=== PATIENT | male | born 1990 | race Caucasian/White ===

== ENCOUNTER 2022-04-19 19:26 | Emergency (ER) | payer OTHER, SELFPAY ==
[2022-04-19] VITALS (8 sets, daily range): BP systolic 153–197; BP diastolic 93–119; PULSE 76–108; RESP 16–18; TEMP 36.6; O2SAT 94–99
--- NOTE | ~2022-04-19 | XR_ITS ---
EXAMINATION: XR chest 2V Exam Date/Time: 04/19/2022 20:02 CDT HISTORY: LT SIDED CHEST PAIN RADIATING TO LT ARM AND NECK X1DAY Comparison: None available. RESULT: Lines, tubes, and devices: None. Lungs and pleura: Low volumes with crowding. Cardiomediastinal silhouette: Stable. Other: No acute osseous or upper abdominal finding. IMPRESSION: No acute cardiopulmonary process. Reviewed, dictated and finalized at location K.
--- NOTE | 2022-04-19 19:29 | ECG_ITS ---
Measurements Intervals [place] Rate: 96 P: 17 WV: 170 QRS: 9 QRSD: 96 T: 12 QT: 327 QTc: 415 Interpretive Statements SINUS RHYTHM NO PREVIOUS ECG AVAILABLE FOR COMPARISON Electronically Signed On 04-19-2022 20:00:43 CDT by Cheyenne Herbert M.D.
[2022-04-19 19:48] LABS: Basophils Percent Auto 0.3 % (0.2-1.2); Eosinophils Absolute Auto 0.1 K/mm3 (0-0.3); Eosinophils Percent Auto 1.2 % (0-4.4); Hematocrit 47.7 % (42.0-52.0); Hemoglobin 16.4 g/dL (14.0-18.0); Immature Granulocyte Absolute 0.01 K/mm3 (0.00-0.031); Immature Granulocyte Percent A 0.1 % (0-0.5); Lymphocytes Absolute Auto 2.67 K/mm3 (0.9-3.2); Lymphocytes Percent Auto 35.5 % (18.3-44.2); Mean Corpuscular HGB Conc 34.4 g/dl (32-36); Mean Corpuscular Hemoglobin 27.2 pg (26-34); Mean Corpuscular Volume 79.2 fl (80-100); Mean Platelet Volume 9.8 fl (7.4-10.4); Monocytes Absolute Auto 0.7 K/mm3 (0.1-0.6); Monocytes Percent Auto 9.3 % (2.6-8.5); Neutrophils Percent Auto 53.6 % (45.5-73.1); Platelet Count Result 237 k/mm3 (150-375); Red Blood Count 6.02 M/mm3 (4.6-6.20); Red Cell Distribution Width 13.3 % (11.5-14.5); White Blood Count 7.5 K/mm3 (4.5-10.0)
[2022-04-19 20:07] LABS: Prothrombin Time 12.5 Seconds (11.1-14.7)
[2022-04-19 20:08] LABS: Partial Thromboplastin Time 31.7 SECONDS (22.3-36.8)
[2022-04-19 20:13] LABS: Alanine Aminotransferase 73 U/L (6-50); Albumin Level 4.7 g/dL (3.5-5.1); Alkaline Phosphatase 104 U/L (38-126); Anion Gap 7 mmol/L (8-16); Aspartate Amino Transferase 48 U/L (17-59); Blood Urea Nitrogen 14 mg/dL (9-20); Calcium 9.1 mg/dL (8.4-10.2); Carbon Dioxide 28 mmol/L (22-30); Chloride 103 mmol/L (98-107); Estimated CRCL calculation 145 ml/min; Estimated Glomerular Filt Rate > 60; Glucose 80 mg/dL (65-110); Lipase 159 U/L (23-300); Potassium 4.1 mmol/L (3.4-5.0); Sodium 138 mmol/L (137-145)
[2022-04-19 20:23] LABS: Troponin I < 0.012 ng/mL (0.000-0.034)
--- NOTE | 2022-04-19 20:28 | ED.CHESTPAIN ---
HPI - Chest Pain General Chief Complaint: Chest Pain Stated Complaint: chest pain Time Seen by Provider: 04/19/22 20:04 History of Present Illness HPI narrative: 31-year-old male no medical history presents the emergency room with sudden onset of unprovoked left anterior chest pain. Patient states this morning he began experiencing chest pain that radiated into his left arm and neck while at rest. Patient states pain lasted about 30 minutes and did not have any associated symptoms. Patient describes the pain as a pressure-like sensation and is unable to reproduce the pain. Patient denies any recent URI symptoms. Denies drug or alcohol abuse. Does not smoke. Related Data Allergies Allergy/AdvReac Type Severity Reaction Status Date / Time No Known Allergies Allergy Unverified 04/19/22 20:18 Review of Systems Review of Systems: CONSTITUTIONAL: Denies fever, chills, or sweats. EYES: Denies visual changes, redness, or discharge. ENT: Denies rhinorrhea, congestion, sore throat, or otalgia. CARDIOVASCULAR: Reports chest pain, denies palpitations RESPIRATORY: Denies cough or dyspnea. GASTROINTESTINAL: Denies abdominal pain, nausea, vomiting, or diarrhea. GENITOURINARY: Denies dysuria or hematuria. SKIN: Denies rash or itching. MUSCULOSKELETAL: Denies back pain, joint pain, or myalgia. NEUROLOGIC: Denies headache, numbness, dizziness, or weakness. PSYCHIATRIC: Denies anxiety or depression. Exam Narrative: GENERAL: Well-appearing, well-nourished, no physical limitations, and in no acute distress. HEAD: Normocephalic, atraumatic. EYES: Conjunctivae normal, PERRLA and EOMI. CHEST: Clear to auscultation. No respiratory distress. No wheezes rales or rhonchi. No tenderness. HEART: Regular rate and rhythm. No murmur heard. Normal peripheral pulses. EXTREMITIES: Normal range of motion. No edema. No clubbing or cyanosis SKIN: Warm, dry, no rash. No noted wounds NEURO: No focal deficits. Alert and oriented x3. MAEW. CN's II-XI intact bilaterally, normal gait PSYCH: Cooperative. Normal mood and affect. Course Vital Signs Vital signs: Vital Signs Temperature 36.6 C 04/19/22 19:52 Pulse Rate 108 H 04/19/22 19:52 Respiratory Rate 16 04/19/22 19:52 Blood Pressure 153/93 H 04/19/22 19:52 Pulse Oximetry 99 04/19/22 19:52 Oxygen Delivery Room Air 04/19/22 19:52 Temperature 36.6 C 04/19/22 19:52 Pulse Rate 76 04/19/22 20:17 Respiratory Rate 18 04/19/22 20:17 Blood Pressure 195/98 H 04/19/22 20:17 Pulse Oximetry 98 04/19/22 20:45 Oxygen Delivery Room Air 04/19/22 20:15 MDM - Chest Pain Lab Data Result diagrams: 04/19/22 19:38 04/19/22 19:38 Labs: Lab Results 04/19/22 04/19/22 04/19/22 Range/Units 19:38 19:38 19:38 WBC 7.5 (4.5-10.0) K/mm3 RBC 6.02 (4.6-6.20) M/mm3 Hgb 16.4 (14.0-18.0) g/dL Hct 47.7 (42.0-52.0) % MCV 79.2 L (80-100) fl MCH 27.2 (26-34) pg MCHC 34.4 (32-36) g/dl RDW 13.3 (11.5-14.5) % Plt Count 237 (150-375) k/mm3 MPV 9.8 (7.4-10.4) fl Immature Gran % (Auto) 0.1 (0-0.5) % Neut % (Auto) 53.6 (45.5-73.1) % Lymph % (Auto) 35.5 (18.3-44.2) % [place] % (Auto) 9.3 H (2.6-8.5) % Eos % (Auto) 1.2 (0-4.4) % Baso % (Auto) 0.3 (0.2-1.2) % Lymph # (Auto) 2.67 (0.9-3.2) K/mm3 [place] # (Auto) 0.7 H (0.1-0.6) K/mm3 Eos # (Auto) 0.1 (0-0.3) K/mm3 Baso # (Auto) 0.0 (0.0-0.1) K/mm3 Abs Immat Gran (auto) 0.01 (0.00-0.031) K/mm3 Absolute Neuts (auto) 4.0 (1.3-6.7) K/mm3 Absolute Nucleated RBC 0.0 (0.0-0.012) K/mm3 Nucleated RBC % 0.0 (0.0-0.2) % PT 12.5 (11.1-14.7) Seconds INR 1.0 APTT 31.7 (22.3-36.8) SECONDS D-Dimer (<0.48) ug/mL Sodium 138 (137-145) mmol/L Potassium 4.1 (3.4-5.0) mmol/L Chloride 103 (98-107) mmol/L Carbon Dioxide 28 (22-30) mmol/L Anion Gap 7 L (8-16) mmol/L BUN 14 (9-2
[2022-04-19 20:43] LABS: D Dimer 0.31 ug/mL (<0.48)
== END 2022-04-19 21:23 | disposition home or self-care (01) ==
PROVIDERS: Emergency Medicine; Emergency Provider Nurse Practitioner Family; PCP Internal Medicine
DX: R07.89 Other chest pain (principal)
CPT/HCPCS: 36415; 71046; 80053; 83690; 84484; 85025; 85380; 85610; 85730; 93005; 99284

== ENCOUNTER 2022-05-25 09:07 | Emergency (ER) | payer OTHER, SELFPAY ==
[2022-05-25 09:16] VITALS: BP 148/105; PULSE 93; RESP 16; TEMP 36.7; O2SAT 99
[2022-05-25 09:17] VITALS: BP 148/105; PULSE 93; RESP 16; TEMP 36.7; O2SAT 99
--- NOTE | 2022-05-25 09:32 | ED.EYEPROB ---
HPI - Eye Problem General Chief complaint: Eye Problems Stated complaint: stye on lt eye Time Seen by Provider: 05/25/22 09:32 Source: patient, RN notes reviewed and old records reviewed Mode of arrival: ambulatory Limitations: no limitations History of Present Illness HPI Narrative: 31-year-old male who presents to [facility] who has external stye noted to left lower medial eyelid. Patient states stye has been there for 3 week duration. He reports using warm compresses his left eye, OTC eyedrops and ointment without resolution of his symptoms. Patient denies any change in vision no redness to sclera noted nor injection of conjunctiva. MD chief complaint: other (stye to left lower eyelid) Onset (ago): week(s) (3) Eye Symptoms: other (stye to left lower eyelid) Severity scale (1-10): 5 If Pain, Quality: other (pressure,soreness) Treatments Prior to Arrival: OTC eye drops and other (warm compresses and OTC ointment) Related Data Allergies Allergy/AdvReac Type Severity Reaction Status Date / Time No Known Allergies Allergy Verified 05/25/22 09:16 Review of Systems Review of Systems: CONSTITUTIONAL: Denies fever, chills, or sweats. EYES: Denies visual changes. Reports redness, irritation,swelling to left medial lower eyelid; appears as if stye. ENT: Denies rhinorrhea, congestion, sore throat, or otalgia. CARDIOVASCULAR: Denies chest pain, palpitations, or edema. RESPIRATORY: Denies cough or dyspnea. SKIN: Denies rash or itching. NEUROLOGIC: Denies headache All systems reviewed & are unremarkable except as noted in HPI and below PMFSH Past Medical History Medical History (Updated 05/29/22 @ 13:38 by Briana Pena NP) Elevated blood pressure reading External hordeolum Social History Social History (Updated 05/29/22 @ 13:33 by Briana Pena NP) Smoking status: Never smoker Alcohol intake: current Alcohol use details: social Substance use type: does not use Living arrangements: with family Gender identity (if verbalized by the patient): Male Comments At time of signature, agree with nursing past medical, surgical, social and family history. There is no relevant family history pertinent to the presenting complaint Exam Narrative: GENERAL: Well-appearing, well-nourished, and in no acute distress. HEAD: Normocephalic, atraumatic. EYES: PERRLA and EOMI. Upper eyelids unremarkable left lower left eyelid has noted swelling ,red with raised lesion to medial aspect of left lower eyelid No periorbital cellulitis noted. Sclera and conjunctivae clear ENT: Nares clear, no rhinorrhea or epistaxis. Mucous membranes moist. NECK: Supple. no lymphadenopathy CHEST: Clear to auscultation. No respiratory distress. HEART: Regular rate and rhythm. No murmur heard. Normal peripheral pulses. SKIN: Warm, dry, no rash. NEURO: No focal deficits. Alert and oriented x3. Course Course Emergency Course: Patient is aware of diagnosis, understands and agrees to treatment plan. Anticipatory guidance given. Patient agrees to follow-up as directed and is aware of reasons to seek care at the emergency department. Portions of this record may have been created with voice recognition software Level of Care: Express Care Visit Vital Signs Vital signs: Vital Signs Temperature 36.7 C 05/25/22 09:16 Pulse Rate 93 05/25/22 09:16 Respiratory Rate 16 05/25/22 09:16 Blood Pressure 148/105 H 05/25/22 09:16 Pulse Oximetry 99 05/25/22 09:16 Temperature 36.7 C 05/25/22 09:17 Pulse Rate 93 05/25/22 09:17 Respiratory Rate 16 05/25/22 09:17 Blood Pressure 148/105 H 05/25/22 09:17 Pulse Oximetry 99 05/25/22 09:17 Reviewed MDM - Eye Problem MDM Narrative Medical decision making narrative: Consideration of the following conditions may be warranted for the presenting problem, they are not final diagnoses: Bacterial conjunctivitis, allergic conjunctivitis, viral conjunctivitis, foreign body, blephar
== END 2022-05-25 09:55 | disposition home or self-care (01) ==
PROVIDERS: Emergency Provider Registered Nurse; PCP Internal Medicine
DX: H00.015 Hordeolum externum left lower eyelid (principal)
CPT/HCPCS: 99213; G0463

== ENCOUNTER 2022-11-07 07:55 | Outpatient (CLI) | payer OTHER, SELFPAY ==
--- NOTE | ~2022-11-07 | US_ITS ---
Limited Abdominal Sonogram: Real-time sonographic imaging of the right upper quadrant was performed. Clinical History: Abnormal serum enzymes Findings: The liver appears mildly echogenic, with no evidence of mass lesion or bile duct dilatatio n. Main portal vein demonstrates normal direction of flow. The gallbladder is well distended, and bella ears normal with no evidence of gallstone or wall thickening. The common bile duct measures 5 mm. Th e visualized pancreas, aorta, and IVC are unremarkable. Impression: Probable diffuse fatty infiltration of the liver. Reviewed, dictated and finalized at location M. Impression: Probable diffuse fatty infiltration of the liver.
== END 2022-11-07 07:56 | disposition home or self-care (01) ==
PROVIDERS: PCP Internal Medicine; Visit Provider Internal Medicine
DX: R74.8 Abnormal levels of other serum enzymes (principal)
CPT/HCPCS: 76705

== ENCOUNTER 2023-01-15 01:23 | Day surgery (SDC) | payer OTHER, SELFPAY ==
[2023-01-05 11:21] VITALS: BMI 37.3
--- NOTE | 2023-01-05 11:24 | PC.NURSE ---
Report to the Outpatient Waiting Room, entrance under the green pavilion located off [facility], at time 0900 on date 01/15/23. Planned Procedure Time: 1100. Time changes happen often and if your time is changed the preop area will call you the afternoon before. - You and your visitor will be asked to self-screen and do not enter if you have any COVID symptoms. - A mask is optional within the hospital at this time. Patients may have clear liquids (water, carbonated beverages, clear teas, apple juice) until 3 hours prior to surgery with a maximum of 20 ounces. - No food from midnight until time of surgery Take the following medications with a SIP of water the morning of surgery: SERTRALINE DO NOT STOP ANY OF YOUR OTHER PRESCRIPTION MEDICATIONS PRIOR TO SURGERY ?EXCEPT THE FOLLOWING Medications to discontinue per physician: N/A Date to take last dose: N/A Please no make-up, nail jamaican, hairspray, perfume, deodorant, or body powder the day of surgery. No jewelry (including any body piercings) or valuables the day of surgery, leave them at home. Please take a shower or bath the night before, or the morning of, surgery with an antibacterial soap. Wear comfortable, loose fitting clothing. - Jewelry must be removed prior to entering the operating room. Rings and piercings that are not removed may be cut off. - The hospital will not accept responsibility for valuables. - Please leave all valuables, including medications, at home the day of surgery. If you are going home after surgery, a licensed corrugated fastener driver must drive you home. - NO public transportation without another adult if you receive anesthesia. - We recommend that an adult stay with you for 24 hours following discharge. - We also recommend that you do not drive, make important decision, drink alcoholic beverages, or take any drugs that were not prescribed by your health care provider for at least 24 hours after your discharge time. Follow any additional instructions given to you from your surgeon. If you or anyone in your household have experienced Covid symptoms in the past week, please notify your surgeon or the nurse liaison at the phone number below for possible testing. Telephone instructions given to PT - CHAZ BLISS and asked if any additional questions and then verbalized understanding. Patient advised to call surgeon office or pre surgery nurse liaison [phone] if any additional questions.
--- NOTE | 2023-01-12 16:51 | P.HP_ITS ---
H&P: HPI History of Present Illness Date/Time: 01/12/23 16:51 Chief Complaint: Nasal obstruction nasal congestion septal deviation turbinate hypertrophy Narrative: planned surgical procedure Review of Systems Review of Systems: All systems reviewed & are unremarkable except as noted in HPI and below [facility] Past Medical History Medical History Anxiety Chronic nasal congestion Elevated blood pressure reading External hordeolum Generalized anxiety disorder Hypogonadism in male Family History Family History Grandparent Hyperlipemia, mixed Social History Social History Smoking status: Never smoker Alcohol intake: never Alcohol use details: social Substance use: never Substance use type: does not use Lack of Transportation: No Lack of Food: Never True Current Housing: I Have Housing Concerned About Future Housing: No Difficulty Paying Gas/Electric Bills: No Difficulty Paying for Meds: No Currently Unemployed: No Education: High School Diploma/GED Difficulty w/ Childcare or Family Care: No Living arrangements: with family Gender identity (if verbalized by the patient): Male Spiritual care concerns: No Meds Home Medications and Allergies Home Medications Medication Instructions Recorded Confirmed Type eszopiclone 1 mg tablet (Lunesta) 1 mg PO QHS #20 tabs 10/17/22 01/05/23 Rx sertraline 50 mg tablet 50 mg PO DAILY #30 tabs 12/19/22 01/05/23 Rx Allergies Allergy/AdvReac Type Severity Reaction Status Date / Time No Known Allergies Allergy Verified 01/05/23 11:20 Exam Narrative: septal deviation turbinate hypertrophy Assessment and Plan Assessment and plan (1) Hypertrophy of both inferior nasal turbinates: Code(s): J34.3 - Hypertrophy of nasal turbinates Status: Acute Assessment and Plan: plan or septoplasty turbinate reduction with outfracture, risks were discussed including change in vision blindness CSF leak brain brain damage infection postoperative bleeding need for time off work need for time off school failure to resolve symptoms need for persistent use of medications inherent risks narcotic use.? Damage to any structure but the clavicles by myself damage to any structure the induction and maintenance of anesthesia including vocal cord paralysis.? Septal perforation.? Patient voiced risk of these voiced understanding of these risks and agreed. (2) Nasal septal deviation: Code(s): J34.2 - Deviated nasal septum Status: Acute (3) Nasal obstruction: Code(s): J34.89 - Other specified disorders of nose and nasal sinuses Status: Acute
[2023-01-15] VITALS (11 sets, daily range): BP systolic 106–147; BP diastolic 59–94; PULSE 73–91; RESP 14–22; TEMP 36.3–36.6; O2SAT 92–100
--- NOTE | 2023-01-15 07:17 | WPDHPUPDATE1 ---
History and Physical Update Update Date/Time: 01/15/23 07:17 History and Physical has been reviewed, including an updated exam of the patient. There are NO changes in the patient's condition. Risks, benefits, and alternatives have been discussed and questions answered. Patient agrees to proceed with procedure.
[2023-01-15] MEDS: LACTATED RINGERS 1,000 ML 30 ML IV CONT ×2 (09:30→12:50)
--- NOTE | 2023-01-15 09:56 | P.PNAN_ITS ---
Anes - Initial Pre Proc Eval Procedure: Operation Date: 01/15/23 11:00 Proposed Procedures p Septoplasty, - Ceferino Spangler MD s Bilateral Inferior Turbinectomy with Outfracture - Ceferino Spangler MD Date/Time: 01/15/23 09:56 Surgeon: Ceferino Spangler MD Pre Op Diagnosis: septal deviation, turbinate hypertrophy Patient Data Age: 32 Gender: M Height: 1.98 m Weight: 146.5 kg Allergies Allergy/AdvReac Type Severity Reaction Status Date / Time No Known Allergies Allergy Verified 01/15/23 09:53 Home Medications Medication Instructions Recorded Confirmed Type eszopiclone 1 mg tablet (Lunesta) 1 mg PO QHS #20 tabs 10/17/22 01/15/23 Rx sertraline 50 mg tablet 50 mg PO DAILY #30 tabs 12/19/22 01/15/23 Rx Patient hx anesthesia problems: none Family hx anesthesia problems: none Results Review: All pre-operative results and documents have been reviewed as part of the pre- operative evaluation. [facility] Past Medical History Medical History Anxiety Chronic nasal congestion Elevated blood pressure reading External hordeolum Generalized anxiety disorder Hypogonadism in male Family History Family History Grandparent Hyperlipemia, mixed Social History Social History Smoking status: Never smoker Alcohol intake: never Alcohol use details: social Substance use: never Substance use type: does not use Lack of Transportation: No Lack of Food: Never True Current Housing: I Have Housing Concerned About Future Housing: No Difficulty Paying Gas/Electric Bills: No Difficulty Paying for Meds: No Currently Unemployed: No Education: High School Diploma/GED Difficulty w/ Childcare or Family Care: No Living arrangements: with family Gender identity (if verbalized by the patient): Male Spiritual care concerns: No Anes - Eval Final PreProcedure Day of Procedure 01/15/23 09:56 Patient weight: overweight Heart: regular rate and rhythm Lungs: clear to auscultation Airway: Mallampati scale class II Neurological: alert and oriented Last oral intake: >/= 8 hours ASA classification: II Emergent: no Anesthetic plan: proceed Anesthesia type and monitoring: general ETT and standard monitoring Results Review: All pre-operative results and documents have been reviewed as part of the pre- operative evaluation. Informed Consent: The patient's anesthetic plan and its attendant risks and benefits were discussed with the patient/family/POA. Questions were solicited and answers provided to the satisfaction of the patient/family/POA.
[2023-01-15] MEDS: ACETAMINOPHEN 500 MG TABLET 1000 MG PO (09:58)
[2023-01-15] MEDS: ceFAZolin 3 GM/D5W 100 ML 100 ML IVPB (11:20)
[2023-01-15] MEDS: OXYMETAZOLINE HCL 0.05% NAS 15 ML BTL (*BKC) 1 SPRAY NASAL (12:16)
[2023-01-15] MEDS: MUPIROCIN 2% OINT 22 GM TUBE 1 APPLIC EACH NARE (12:37)
[2023-01-15] MEDS: LIDO 1%/EPINEPHRINE 1:100,000 50 ML VIAL 20 ML INFILTRATE (12:38)
--- NOTE | 2023-01-15 13:06 | P.OP_ITS ---
Procedure Note - Detailed Date of Procedure 01/15/23 Pre-op Diagnosis septal deviation, turbinate hypertrophy Post-op Diagnosis Same Procedure Performed endoscopicassisted septoplasty turbinate reduction with outfracture bilaterally Surgeon Ceferino Spangler MD Anesthesia General Indications see above Findings severely deviated left for septum straight left-sided perforation small no concomitant right-sided perforation turbinates hypertrophied well reduced minima l if any bleeding. Description of Procedure Patient identified consent verified the preoperative holding area. Patient brought back to the operating room. Time-out performed. General anesthesia induced. Endotracheal tube secured airway. Patient prepped reposition procedure confirm 2nd time-out performed. Afrin-soaked pledgets placed bilatera lly in nasal passages and allowed to sit for 5 minutes. Afrin-soaked pledgets removed 0 degree endoscope utilized total 15 cc 1% lidocaine 1 100,000 parts epinephrine injected the bilateral inferior turbinates nasal septum. [place] incision made left-sided 15 blade left nasal septal flap elevated 7 [place] suction osteotome utilized to cross the septum right-sided nasal septal flap elevated. Deviated septum removed combination D blade Josefina forceps Mert Parham forceps osteotome. Small left-sided perforation over spur. No right- sided perforation. Serge incision closed with 3 interrupted 5 0 fast gut sutures. Turbinates reduced in a submucosal plane with microdebrider with turbinate blade. Heads then cauterized so no bleeding would result. [place] tips cauterized as well. They were then outfractured with [place] elevator. Bilateral nasal passages suction the choana. Muller splints placed sutured anteriorly using a 3-0 mattressed nylon suture. Total blood loss about 25 cc. I performed all dictated portions of procedure minimal blood loss no complications care the patient given back to Anesthesiology patient taken to PACU. Estimated Blood Loss 25 Drains No Packing No Pathology None sent Complications No immediate complications Condition Stable Disposition PACU [facility] Billing Surgery - Charge Forward: Surgery Billing
[2023-01-15] MEDS: ONDANSETRON INJ 4 MG/2 ML VIAL IV PUSH (13:40)
== END 2023-01-15 15:00 | disposition home or self-care (01) ==
PROVIDERS: PCP Internal Medicine; Visit Provider Otolaryngology
PROC: (CPT 30520; principal; 2023-01-15 11:00)
PROC: (CPT 30520; 2023-01-15 11:00)
DX: J34.2 Deviated nasal septum (principal); J34.3 Hypertrophy of nasal turbinates; J34.89 Other specified disorders of nose and nasal sinuses; F41.1 Generalized anxiety disorder
CPT/HCPCS: 30520; 30140; A9270; J0330; J0690; J1100; J2250; J2405; J2704; J3010; J7120

== ENCOUNTER 2025-01-19 08:05 | Outpatient (CLI) | payer OTHER, SELFPAY ==
--- OUTSIDE RECORDS SUMMARY | 2025-01-19 08:08 | XMS_ITS | Clinical Summary ---
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 Name Role Phone Keturah Elizabeth NP Primary Care Provider + Allergies No known active allergies Medications ALPRAZolam (XANAX) 0.5 mg tablet Take 0.5 mg by mouth nightly as needed 02/28/2017 Active cyclobenzaprine (FLEXERIL) 10 mg tablet Take 10 mg by mouth 3 (three) times a day as needed 07/04/2019 Active ketorolac (TORADOL) 10 mg tablet 04/28/2021 Active Active Problems Problem Noted Date Diagnosed Date Anxiety 05/02/2021 Knee pain 08/30/2015 Overview (10/13/2016): Knee pain Medical History Medical History Date Comments Anxiety Social History Tobacco Use Types Packs/Day Years Used Date Smoking Tobacco: Never Smokeless Tobacco: Never Personal Safety Answer Date Recorded Getting School Help Needed Not on file 09/03 Sex and Gender Information Value Date Recorded Sex Assigned at Not on file Legal Sex Male 8:09 AM W[employer]YING [employer]ACH[employer] K[employer] Gender Identity Not on file Sexual Orientation Not on file Occupation Industry Job Start Date Job End Date [employer] Not on file Not on file Not on file Obstetrics History Last Filed Vital Signs Vital Sign Reading Time Taken Comments Blood Pressure - - Pulse - - Temperature - - Respiratory Rate - - Oxygen Saturation - - Inhaled Oxygen Concentration - - Weight 129.3 kg (285 lb) 05/11/2021 11:35 AM CDT Height 198.1 cm (6' 6) 05/11/2021 11:35 AM CDT Body Mass Index 32.94 05/11/2021 11:35 AM CDT Plan of Treatment Not on file Insurance [facility] C[employer]NA [employer] PPO [facility] [facility] C[employer]NA Care Teams Continuous Churn 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
--- OUTSIDE RECORDS SUMMARY | 2025-01-19 08:08 | XMS_ITS | Clinical Summary ---
Author Organization [facility] Address [address], [facility] [address] [place] [address] Phone Care Team Providers Care Foreign Languages Professor Name Role Phone Griselda Díaz Unavailable Unavailable Allergies No known active allergies Medications ALPRAZolam (XANAX) 0.5 MG TabletIndication s:Anxiety Take 1 Tab by mouth nightly as needed for Sleep for up to 1 dose. 30 Tab 7 Active SUMAtriptan (IMITREX) 25 MG TabletIndication s:Migraine without aura and without status migrainosus, not intractable Take 1 Tab by mouth once as needed for Migraine for up to 1 dose. Use as directed. May repeat dose in 2 hours if headache recurs. 9 Tab 3 9 Active cyclobenzaprine (FLEXERIL) 10 MG Tablet Take 1 Tab by mouth 3 times daily as needed for Muscle spasms. 60 Tab 9 Active traMADol (ULTRAM) 50 MG Tablet Take 1 Tab by mouth every 6 hours as needed for Mild or more severe pain. 25 Tab 0 Active naproxen (NAPROSYN) 500 MG TabletIndication s:Acute pain of right shoulder Take 1 Tab by mouth 2 times daily (with meals). 30 Tab 0 Active azelastine (ASTELIN) 0.1 % SolutionIndicati ons:Environmenta l allergies 2 Sprays by Nasal route 2 times daily. Use in each nostril as directed 1 Bottle 3 1 Active Active Problems Problem Noted Date Diagnosed Date Anxiety Social History Tobacco Use Types Packs/Day Years Used Date Smoking Tobacco: Never Smokeless Tobacco: Never Tobacco Cessation:Counseling Given: No Alcohol Use Standard Drinks/Week Comments Yes 1 (1 standard drink = 0.6 oz pur e alcohol) PHQ-2 Answer Date Recorded PHQ-2 Score 0 03/19/2019 Sexually Active Control Partners Comments Yes Sex and Gender Information Value Date Recorded Sex Assigned at Not on file Legal Sex Male 9:19 PM CDT Gender Identity Not on file Sexual Orientation Not on file Last Filed Vital Signs Vital Sign Reading Time Taken Comments Blood Pressure 110/86 06/24/2019 5:16 PM [employer] Pulse 104 06/24/2019 5:16 PM [employer] Temperature 37.1 C (98.8 F) 06/24/2019 5:16 PM [employer] Respiratory Rate 24 06/24/2019 5:16 PM [employer] Oxygen Saturation 97% 06/24/2019 5:16 PM [employer] Inhaled Oxygen Concentration - - Weight 158.3 kg (349 lb) 06/24/2019 5:16 PM [employer] Height 198.1 cm (6' 6) 06/24/2019 5:16 PM [employer] Body Mass Index 40.33 06/24/2019 5:16 PM [employer] Plan of Treatment Health Maintenance Due Date Last Done Comments Hepatitis C Virus (HCV) Screening 1992 TdaP Immunization 1992 Human Papillomavirus (HPV) Immunization (1 - Male 3-dose series) 2007 Hepatitis B Immunization (1 of 3 - 19+ 3-dose series) 2011 SARS-COV-2 Immunization ( - 2023- season) 2024 Influenza Immunization (#1) 2025 Respiratory Syncytial Virus (RSV) Immunization (Adult) (1 - 1-dose 75+ series) 2067 Meningococcal Immunization (ACWY) Aged Out No longer eligible based on patient's age to complete this topic Pneumococcal Immunization Combined Aged Out No longer eligible based on patient's age to complete this topic Rotavirus Immunization Aged Out No lo nger eligible based on patient's age to complete this topic Insurance [employer] Care Teams Foreign Languages Professor Relationship Specialty Start Date End Date Griselda Díaz Behavioral Health Navigator 08/09/18
--- OUTSIDE RECORDS SUMMARY | 2025-01-19 08:08 | XMS_ITS | Referral Summary ---
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
[2025-02-10 10:49] VITALS: BMI 38.1
--- NOTE | 2025-02-10 10:49 | P.SLEEP_ITS ---
Sleep Study - Home Unattended Date of Study: 01/19/25 Ordering Provider: Anna Solares DO Interpreting Provider: Anna Solares DO Home Sleep Study Type: Watch PAT Height: 1.98 m Weight: 149.685 kg Body Mass Index: 38.1 Neck Circumference (inches): 20.5 [place]: 14 Reason for Sleep Study Daytime hypersomnia Sleep History The patient is a 34-year-old male that had a sleep study ordered by his sleep physician for evaluation of sleep apnea. The patient occasionally awakens from sleep short of breath. He rarely awakens at night with heartburn, belching or cough. He constantly snores loudly enough that others complain. He constantly has trouble sleeping when he has a cold. He occasionally wakes up gasping for air throughout the night. He constantly has breathing problems at night observed by himself or others. He frequently sweats excessively at night. He frequently has heart palpitations or irregular heartbeats during the night. He rarely falls asleep during the day and rarely falls asleep while driving. He occasionally experiences loss of muscle tone when extremely emotional. He frequently has trouble at school or work due to sleepiness. He rarely feels unable to move while waking up or falling asleep. He denies hypnagogic / hypnopompic hallucinations. He rarely feels afraid of going to sleep. He denies having nightmares. He denies remembering his dreams. He frequently has thoughts racing through his mind. He frequently feels sad or depressed. He constantly has anxiety. He rarely has muscular tension. He rarely notices parts of his body jerk. He frequently kicks during the night. He occasionally has crawling and aching feelings in his legs but rarely has leg pain during the night. He constantly grinds his teeth during sleep but rarely awakens with morning jaw pain. He is occasionally bothered by pain during the day and rarely awakened by pain during the night. He constantly wakes up feeling stiff in the morning. He constantly wakes up with sore or achy muscles. He occasionally wakes up with pain in the neck, spine and other joints. He goes to bed between 11:00 p.m. to midnight every night. It takes him 1 hour to fall asleep. He wakes up 2 times throughout the night to adjust his position or get a drink. It takes him about 30 minutes to fall back asleep. He wakes up at 7:00 a.m. every morning. He typically gets 3-4 hours of sleep per night. He will stay in bed for 10 minutes after waking up in the morning. He currently lives with his and kids. He denies consuming any caffeinated beverages within 2 hours of bedtime. He denies engaging in physical exercise before bedtime. He will watch television before falling asleep. He will take naps in the afternoon or the evening but they are not refreshing. He consumes 2 caffeinated beverages per day. He denies alcohol and recreational drug use. [facility] Past Medical History Medical History Chronic nasal congestion Hypogonadism in male Generalized anxiety disorder Anxiety Elevated blood pressure reading External hordeolum Family History Family History Grandparent Hyperlipemia, mixed Social History Social History Smoking status: Never smoker Alcohol intake: never Alcohol use details: social Substance use: never Substance use type: does not use Do You Feel Safe in your Home?: Yes Lack of Transportation: No Lack of Food: Never True Current Housing: I Have Housing Concerned About Future Housing: No Difficulty Paying Gas/Electric Bills: No Difficulty Paying for Meds: No Currently Unemployed: No Education: High School Diploma/GED Difficulty w/ Childcare or Family Care: No Living arrangements: with family Gender identity (if verbalized by the patient): Male Spiritual care concerns: No Medications Home Medications ?Medication ?Instructions ?Recorded ?Confirmed ?Type clonazepam 0.5 mg tablet 0.5 mg PO DAILY PRN anxiety #30 12/02/24 01/07/25 Rx tabs eszopiclone 2 mg tablet (Lunesta) 2 mg PO QHS #1 tablet 01/07/25 01/07/25 Rx sertraline 100 mg tablet 200 mg (2 x 100 mg) PO DAILY #180 01/07/25 01/07/25 Rx tabs Sleep Procedure The sleep study was completed using WatchPAT a technically adequate device with seven channels: peripheral arterial tone, actigraphy, body position, snore, respiratory movement, pulse oximetry, sleep staging, and heart rate. Prior to using the device, the patient received verbal and written instructions for its application and was provided with the help desk phone number for additional telephonic instruction with 24-hour availability of qualified personnel to answer questions. The study was scored using CMS guidelines. Sleep Architecture The total recording time is 6 hrs, 10 min. The total sleep time is 5 hrs, 12 min. Sleep latency is 10 minutes. REM latency is 101 minutes. The patient had 11 episodes of waking. Sleep architecture shows 7.4% deep sleep, 76.3% light sleep, and (as % Total Sleep Time) showed NREM (Light 76.3%; Deep 7.4%), and a 16.3% stage REM. The patient spent 26.6% of total sleep time in the supine position. Sleep efficiency was 84.32. Respiratory Analysis The overall AHI (pAHI 4%:) is 26.7. The overall AHI (pAHI 3%:) is 36.9. The central AHI is 3.4. The AHI was 38.3 in NREM and 29.6 in REM sleep. The AHI was 88.7 in Supine and 18.0 in Non-supine sleep. Percent of Saqib Amor respirations is 0.0. Oximetry Data The oxygen desaturation index (CRISTOFER 4%:) is 26.3. The mean saturation is 95%, and the lowest saturation is 79%. Time spent with saturation < 88% is 12.1 minutes. Snoring Profile Snoring average intensity is 43 dB. The patient snored above 45 decibels for 72.2 minutes, 23.1% of sleep time. Cardiac Profile The average pulse rate is 79 beats per minutes. The lowest pulse rate is 53 bpm. The highest pulse rate reported is 106 bpm. Suspected Afib total duration is 0:00:55, (h:m:sec). The longest Afibevent duration is 0:00:59. A suspected arrhythmia flagged in the sleep report does not necessarily imply an arrhythmia condition is present, but rather suggests that further investigation should be considered. A-Fib events < 60 seconds may be artifact. Premature beats occur 0.2 per minute. Assessment and Plan Assessment and Plan (1) AYESHA (obstructive sleep apnea): Code(s): G47.33 - Obstructive sleep apnea (adult) (pediatric) Status: Acute Assessment and Plan: The patient had an overall AHI of 26.7 with desaturation down to 79%. This is consistent with moderate sleep apnea. I recommend that the patient be prescribed Resmed AutoPAP 5-15 cm H2O, CPAP mask/filters/tubing and heated humidity. A mandibular advancement device is also an acceptable treatment option. This should be used with all episodes of sleep.? Compliance should be reviewed within 31-90 days of starting therapy for usage greater than 4 hours per night greater than 70% of the nights. The patient should be asked about symptoms such as?excessive daytime sleepiness, quality of sleep, decreased nocturia, increased?mental functioning such as memory, mood, and concentration. Data The data obtained during this sleep study is adequate for interpretation. Certification This sleep study has been reviewed by a board certified sleep medicine physician.
== END 2025-01-20 13:48 | disposition home or self-care (01) ==
PROVIDERS: PCP Internal Medicine; Visit Provider Family Medicine
DX: G47.33 Obstructive sleep apnea (adult) (pediatric) (principal)
CPT/HCPCS: 95800